=== PATIENT | male | born 1970 | race Caucasian/White ===

== ENCOUNTER 2018-11-22 00:26 | Emergency (ER) ==
[2018-11-22 00:47] VITALS: BP 132/89; TEMP 98.4; BMI 29.9
[2018-11-22] MEDS ORDERED: MORPHINE 4 MG/ML SYRINGE IM STA (01:03)
[2018-11-22] MEDS ORDERED: PHENERGAN 25 MG/ML VIAL IM STA (01:04)
--- NOTE | 2018-11-22 02:38 | ED.PDOC ---
General ED Provider: Dr. ROHAN DERAS-ER Chief Complaint: Bite Stated Complaint: noted erythema and dark centers right knee Time Seen by Physician: 02:36 Mode of Arrival: Walk-In Information Source: Patient Exam Limitations: No limitations Nursing and Triage Documentation Reviewed and Agree: Yes Does patient meet sepsis criteria?: No System Inflammatory Response Syndrome: Not Applicable Sepsis Protocol: For patient's 13 years and over: Temp is 96.8 and below OR 101 and greater Pulse >90 BPM Resp >20/minute Acutely Altered Mental Status Are patient's symptoms suggestive of a new infection, such as: -Pneumonia -Skin, Soft Tissue -Endocarditis -UTI -Bone, Joint Infection -Implantable Device -Acute Abdominal Infection -Wound Infection -Meningitis -Blood Stream Catheter Infection -Unknown Skin Complaint Exam - Skin/Soft Tissue Complaint/Exam Onset/Duration: 4 days Symptoms Are: Still present Timing: Constant Initial Severity: Mild Current Severity: Moderate Location: right knee Character: Reports: Redness, Swelling, Raised, Painful Aggravating: Reports: None Alleviating: Reports: None Associated Signs and Symptoms: Reports: Tenderness, Red streaks 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 Recent Exposure to Others w/Similar Symptoms: No Skin Findings: Present: Erythema Joint Tenderness Present: No Differential Diagnoses: Cellulitis, MRSA Review of Systems - Review Of Systems Constitutional: Reports: No symptoms Eyes: Reports: No symptoms Ears, Nose, Mouth, Throat: Reports: No symptoms Respiratory: Reports: No symptoms Cardiac: Reports: No symptoms GI: Reports: No symptoms : Reports: No symptoms Musculoskeletal: Reports: No symptoms Skin: Reports: Rash Neurological: Reports: No symptoms Endocrine: Reports: No symptoms Hematologic/Lymphatic: Reports: No symptoms All Other Systems: Reviewed and Negative Past Medical History - Past Medical History Previously Healthy: No Endocrine: Reports: Unknown Cardiovascular: Reports: Unknown Respiratory: Reports: Other Hematological: Reports: Unknown Gastrointestinal: Reports: Other Genitourinary: Reports: Unknown Neuro/Psych: Reports: None Musculoskeletal: Reports: Gout Cancer: Reports: None - Surgical History General Surgical History: Reports: Unknown - Family History Family History: Reports: Unknown - Social History Smoking Status: Current every day smoker, Light tobacco smoker Hx Substance Use: No Alcohol Screening: None - Immunizations Tetanus Shot up to Date: Yes Physical Exam - Physical Exam Appearance: Well-appearing, No pain distress, Well-nourished Eyes: YARED, EOMI, Conjunctiva clear ENT: Ears normal, Nose normal, Oropharynx normal Neck: Supple Respiratory: Airway patent, Breath sounds clear, Breath sounds equal, Respirations nonlabored Cardiovascular: RRR, Pulses normal, No rub, No murmur GI/: Soft, Nontender, No masses, Bowel sounds normal, No Organomegaly Musculoskeletal: Normal strength, ROM intact, No edema, No calf tenderness Skin: Warm, Dry, Normal color Neurological: Sensation intact Psychiatric: Affect appropriate, Mood appropriate Critical Care Note - Critical Care Note Total Time (mins): 0 Course - Course Hematology/Chemistry: 11/22/18 01:20 11/22/18 01:20 Orders, Labs, Meds: Lab Review 11/22/18 11/22/18 11/22/18 01:20 01:20 01:20 WBC 11.69 H RBC 4.57 L Hgb 13.6 L Hct 41.5 L MCV 90.8 MCH 29.8 MCHC 32.8 RDW Coeff of Adam 14.4 Plt Count 309 Immature Gran % (Auto) 0.4 Neut % (Auto) 69.2 Lymph % (Auto) 18.1 [place] % (Auto) 8.5 Eos % (Auto) 2.9 Baso % (Auto) 0.9 Immature Gran # (Auto) 0.1 Neut # (Auto) 8.1 H Lymph # (Auto) 2.1 [place] # (Auto) 1.0 Eos # (Auto) 0.3 Baso # (Auto) 0.1 ESR 7 Sodium 142.2 Potassium 3.65 Chloride 105.5 Carbon Dioxide 28.4 Anion Gap 11.95 BUN 12.3 Creatinine 0.91 Estimated GFR (MDRD) 89.00 BUN/Creatinine Ratio 13.51 Glucose 118.2 H Calcium 8.97 Total Bilirubin 0.24 AST 30.4 ALT 31.6 Alkaline Phosphatase 108.1 Total Protein 6.57 Albumin 3.74 Globulin 2.83 Albumin/Globulin Ratio 1.32 Orders Category Date Time Status CBC W/ AUTO DIFF Stat LAB 11/22/18 01:20 Completed COMPREHENSIVE METABOLIC PANEL Stat LAB 11/22/18 01:20 Completed ESR Stat LAB 11/22/18 01:20 Completed Morphine Sulfate [Morphine 4 mg/ml Syringe] MEDS 11/22/18 01:03 Discontinued 4 mg IM ONCE STA Promethazine HCl [Phenergan 25 mg/ml Vial] MEDS 11/22/18 01:04 Discontinued 25 mg IM ONCE STA Medications Discontinued Medications Generic Name Dose Route Start Last Admin Trade Name Pankaj PRN Reason Stop Dose Admin Morphine Sulfate 4 mg 11/22/18 01:03 11/22/18 01:23 Morphine 4 Mg/Ml Syringe IM 11/22/18 01:04 4 mg ONCE STA Administration Promethazine HCl 25 mg 11/22/18 01:04 11/22/18 01:23 Phenergan 25 Mg/Ml Vial IM 11/22/18 01:05 25 mg ONCE STA Administration Vital Signs: Temp Pulse Resp BP Pulse Ox 11/22/18 00:27 98.4 F 99 H 18 132/89 98 Departure - Departure Time of Disposition: 02:42 Disposition: TSF SHORT-TRM HOSP Discharge Problem: Cellulitis Qualifiers: Site of cellulitis: extremity Site of cellulitis of extremity: lower extremity Laterality: right Qualified Code(s): L03.115 - Cellulitis of right lower limb Instructions: Cellulitis (ED) Condition: Good Pt referred to PMD for follow-up: Yes IPMP verified?: No Allergies/Adverse Reactions: Allergies ketorolac [From Toradol] Adverse Reaction (Verified 11/22/18 00:47) Hives tramadol [From Ultram] Adverse Reaction (Verified 11/22/18 00:47) Vomiting Home Medications: Ambulatory Orders Allopurinol 300 mg PO DAILY 11/22/18 Bethanechol Chloride [Urecholine] 50 mg PO DAILY 11/22/18 Indomethacin [Indocin] 50 mg PO BID 11/22/18 Transfer Form Completed: Yes Disposition Discussed With: Patient
[2018-11-22] MEDS ORDERED: SODIUM CHLORIDE 1,000 ML IV STA (02:43)
[2018-11-22] MEDS ORDERED: DILAUDID 1 MG/ML SYRINGE IVP STA (02:43)
== END 2018-11-22 03:45 | disposition short-term general hospital (02) ==
LOC: ED 00:26
DX: S80.271A Other superficial bite of right knee, initial encounter (principal); L53.9 Erythematous condition, unspecified; L03.115 Cellulitis of right lower limb
CPT/HCPCS: 36415; 80053; 85025; 85651; 96361; 96372; 96374; 99285

== ENCOUNTER 2018-11-22 03:42 | Outpatient (CLI) ==
[2018-11-22 00:47] VITALS: BMI 29.9
== END 2018-11-22 04:06 | disposition short-term general hospital (02) ==
LOC: AMBL 03:42
PROVIDERS: ATTEND Family Medicine
DX: L03.90 Cellulitis, unspecified (principal); W57.XXXA Bitten or stung by nonvenomous insect and other nonvenomous arthropods, initial encounter

== ENCOUNTER 2019-05-18 13:35 | Emergency (ER) ==
[2019-05-18 13:38] VITALS: BMI 27.3
[2019-05-18 13:41] VITALS: BP 113/77; TEMP 99
[2019-05-18] MEDS ORDERED: ZOFRAN 4 MG/2 ML IM STA (13:56)
[2019-05-18] MEDS ORDERED: MORPHINE 2 MG/ML SYRINGE IM STA (13:56)
--- NOTE | 2019-05-18 16:40 | ED.PDOC ---
General ED Provider: Dr. DEN RICO Chief Complaint: Extremity Swelling/Pain Stated Complaint: 10 days ago has had a foot operation .todays presentation is for foot pain . he has hx/o gout Time Seen by Physician: 13:39 (see photos) Mode of Arrival: Wheelchair Information Source: Patient Exam Limitations: No limitations Nursing and Triage Documentation Reviewed and Agree: Yes Does patient meet sepsis criteria?: No System Inflammatory Response Syndrome: Not Applicable Sepsis Protocol: For patient's 13 years and over: Temp is 96.8 and below OR 101 and greater Pulse >90 BPM Resp >20/minute Acutely Altered Mental Status Are patient's symptoms suggestive of a new infection, such as: -Pneumonia -Skin, Soft Tissue -Endocarditis -UTI -Bone, Joint Infection -Implantable Device -Acute Abdominal Infection -Wound Infection -Meningitis -Blood Stream Catheter Infection -Unknown Musculoskeletal Complaint Exam - Ankle/Foot Complaint/Exam Location of Injury: Reports: Right, Foot Mechanism of Injury: Reports: No known trauma (but post op) Onset/Duration: 1days the extent of edema has been the same his operation Symptoms Are: Reports: Still present Onset of Pain: Reports: Days Initial Severity: Moderate Current Severity: Moderate Location: Reports: Discrete Character: Reports: Throbbing, Burning Alleviating: Reports: Rest, Position Aggravating: Reports: None Able to Bear Weight: Yes Associated Signs and Symptoms: Reports: Swelling, Redness (see photos). Denies : Bruising, Fever, Weakness, Numbness, Tingling Gout Risk Factors: Reports: None Related Surgical History: Reports: None Lower Extremity Findings: Present: Swelling, Ecchymosis Achilles Tendon Abnormality: No Tenderness: Present: Midfoot, Metatarsals, Digits Differential Diagnosis: Gout, Other (infection) Review of Systems - Review Of Systems Constitutional: Reports: No symptoms Eyes: Reports: No symptoms Ears, Nose, Mouth, Throat: Reports: No symptoms Respiratory: Reports: No symptoms Cardiac: Reports: No symptoms GI: Reports: No symptoms : Reports: No symptoms Musculoskeletal: Reports: Joint pain (FOOT ), Other (EDEMA FOOT) Skin: Reports: No symptoms Neurological: Reports: No symptoms Endocrine: Reports: No symptoms Hematologic/Lymphatic: Reports: No symptoms All Other Systems: Reviewed and Negative Past Medical History - Past Medical History Previously Healthy: No Endocrine: Reports: Unknown Cardiovascular: Reports: Unknown Respiratory: Reports: Other Hematological: Reports: Unknown Gastrointestinal: Reports: Other Genitourinary: Reports: Unknown Neuro/Psych: Reports: None Musculoskeletal: Reports: Arthritis, Gout Cancer: Reports: None - Surgical History General Surgical History: Reports: Unknown - Family History Family History: Reports: Unknown - Social History Smoking Status: Current every day smoker Hx Substance Use: No Alcohol Screening: None - Immunizations Tetanus Shot up to Date: Yes Physical Exam - Physical Exam Appearance: Well-appearing, No pain distress, Well-nourished Eyes: YARED, EOMI, Conjunctiva clear ENT: Ears normal, Nose normal, Oropharynx normal Respiratory: Airway patent, Breath sounds clear, Breath sounds equal, Respirations nonlabored Cardiovascular: RRR, Pulses normal, No rub, No murmur GI/: Soft, Nontender, No masses, Bowel sounds normal, No Organomegaly Musculoskeletal: Edema (foot see photos) Skin: Warm, Dry, Normal color Neurological: Sensation intact, Motor intact, Reflexes intact, Cranial nerves intact, Alert, Oriented Psychiatric: Affect appropriate, Mood appropriate Re-Evaluation - Re-Evaluation Time of Re-Evaluation: 16:40 ( rejected toradol , i told the pt i would like to evaluated ct report before further pain meds , pt became upset left ama , present at the time was ruth) Critical Care Note - Critical Care Note Total Time (mins): 0 Course - Course Orders, Labs, Meds: Orders Category Date Time Status Morphine Sulfate [Morphine 2 mg/ml Syringe] MEDS 05/18/19 13:56 Discontinued 4 mg IM ONCE STA Ondansetron HCl/Pf [Zofran 4 mg/2 ml] MEDS 05/18/19 13:56 Discontinued 4 mg IM ONCE STA CT FOOT RIGHT WITHOUT CONTRAST Stat RADS 05/18/19 15:51 Taken Medications Discontinued Medications Generic Name Dose Route Start Last Admin Trade Name Freq PRN Reason Stop Dose Admin Morphine Sulfate 4 mg 05/18/19 13:56 05/18/19 14:05 Morphine 2 Mg/Ml Syringe IM 05/18/19 13:57 4 mg ONCE STA Administration Ondansetron HCl 4 mg 05/18/19 13:56 05/18/19 14:06 Zofran 4 Mg/2 Ml IM 05/18/19 13:57 4 mg ONCE STA Administration Vital Signs: Temp Pulse Resp BP Pulse Ox 05/18/19 13:38 99.0 F 100 H 20 113/77 93 L Departure - Departure Time of Disposition: 16:45 Disposition: AMA Discharge Problem: Foot pain, right Condition: Good Pt referred to PMD for follow-up: No (left AMA) IPMP verified?: No Additional Instructions: Please call your Family Physician as soon as possible to schedule a follow-up appointment. Allergies/Adverse Reactions: Allergies ketorolac [From Toradol] Adverse Reaction (Verified 05/10/19 14:22) Hives tramadol [From Ultram] Adverse Reaction (Verified 05/10/19 14:22) Vomiting Home Medications: Ambulatory Orders Allopurinol 300 mg PO DAILY 11/22/18 Bethanechol Chloride [Urecholine] 50 mg PO DAILY 11/22/18 Indomethacin [Indocin] 50 mg PO BID 11/22/18 Colchicine 0.6 mg PO DAILY 04/18/19 Tamsulosin HCl [Flomax] 0.4 mg PO DAILY #5 cap.er.24h 04/18/19 Prednisone 20 mg PO DAILYWM #5 tablet 05/10/19 Promethazine HCl [Phenergan Tab] 25 mg PO Q6H PRN 05/10/19
--- NOTE | 2019-05-18 16:54 | CT ---
EXAM: CT right foot without contrast HISTORY: Pain and swelling right foot, history of gout, 10 days postoperative. COMPARISON: None TECHNIQUE: CT right foot performed without intravenous contrast. Coronal and sagittal reformatted i mages obtained. FINDINGS: There is a surgical side plate with multiple surgical screws traversing the first MTP join t, with prior osteotomy of the first metatarsal. Partial ankylosis first metatarsal. Remodeling j carlos nges about the distal aspect of the first metatarsal head and the proximal aspect of the first proxim al phalanx that are likely postoperative. Associated cystic and/or erosive changes in this region. Two surgical screws in the second metatarsal head. Moderate osteoarthritis of the midfoot with cara siri spurring. The scattered cystic changes in the midfoot likely degenerative. Mild scattered osteo arthritis of the forefoot. Subcutaneous edema about the foot. IMPRESSION: 1. Postoperative changes as described. Cystic and/or erosive changes distal aspect of the first met atarsal and proximal aspect first proximal phalanx. Findings could relate to changes from gout given patient history, though infection/osteomyelitis could have a similar appearance in the appropriate c linical setting. 2. No fracture or dislocation. 3. Subcutaneous edema about the foot can be correlated for edema and/or cellulitis. 4. Osteoarthritis. Cystic changes in the midfoot are probably degenerative, though could relate to given history of gout.
== END 2019-05-18 16:42 | disposition left against medical advice (07) ==
LOC: ED 13:35
DX: M79.671 Pain in right foot (principal); G89.18 Other acute postprocedural pain; R60.0 Localized edema; F17.210 Nicotine dependence, cigarettes, uncomplicated
CPT/HCPCS: 96372; 99284

== ENCOUNTER 2019-05-19 08:14 | Outpatient (CLI) ==
[2019-05-18 13:38] VITALS: BMI 27.3
== END 2019-05-19 08:29 | disposition short-term general hospital (02) ==
LOC: AMBL 08:14
PROVIDERS: ATTEND Emergency Medicine
DX: M10.9 Gout, unspecified (principal); M25.562 Pain in left knee; M25.531 Pain in right wrist; M25.571 Pain in right ankle and joints of right foot; M79.631 Pain in right forearm; M79.89 Other specified soft tissue disorders